=== PATIENT | female | born 1960 | race Two or more races ===

== ENCOUNTER → 2016-09-30 | Outpatient (CLI) | payer OTHER ==
[2014-10-01 09:23] VITALS: BP 125/65
[~2016-09-30] MED LIST: DOXY50SY PO; ESCI5TAB24 PO; EZET10TA3 PO; LANS15CA66 PO; PANT20TA2 PO; TRAZ50TA15 PO
--- NOTE | 2016-09-30 09:43 | RAD ---
Indication:Right upper quadrant abdominal pain. Grayscale images of the abdomen were obtained. Comparison none Liver:No focal mass is seen in the visualized liver. Gallbladder:Normal. The common bile but diameter of approximately 4 mm is normal Spleen:Normal Pancreas:As visualized normal. The distal body and tail of the pancreas were partially obscured. Kidneys:Normal Abdominal aorta and IVC:Normal Ancillary findings:None Impression:Normal exam
--- NOTE | 2016-09-30 12:57 | RAD ---
Transabdominal and transvaginal sonography of the pelvis Clinical indications: Pelvic pain. Transabdominal sonography: The uterus is anteverted in position. The longitudinal and AP and transverse dimensions of the uterus are 5.8 cm and 1.8 cm and 4.5 cm respectively. Endometrial canal is poorly visualized. Therefore, transvaginal sonography will be performed. No free fluid is seen within the cul-de-sac. Neither ovary is visualized. No adnexal masses are seen. Transvaginal sonography: The endometrial canal measures 2.9 mm in thickness and appears normal. No uterine mass or fibroid is seen. No free fluid is seen within the cul-de-sac. The left ovary measures 2.8 cm and 1.1 cm and 2.1 cm in size and is normal. Color Doppler flow is seen within the left ovary. The right ovary measures 2.2 cm and 1.4 cm and 1.8 cm in size and is normal. Color Doppler flow is seen within the right ovary. IMPRESSION: Unremarkable pelvic sonogram.
== END | disposition home or self-care (01) ==
LOC: US 07:58
PROVIDERS: ATTEND Family Medicine
DX: R10.11 Right upper quadrant pain (principal); R10.13 Epigastric pain; R10.819 Abdominal tenderness, unspecified site; R10.2 Pelvic and perineal pain
CPT/HCPCS: 76700; 76856

== ENCOUNTER → 2017-01-11 | Outpatient (CLI) | payer OTHER ==
[2014-10-01 09:23] VITALS: BP 125/65
--- NOTE | 2017-01-11 13:00 | KCIC ---
Indication: Neck pain. Time of exam 12:20 PM Comparison is made with prior cervical spine radiographs from 02/10/2015. Straightening of the normal cervical lordotic curvature is similar to prior exam. Postoperative changes with osseous fusion of the C5 and C6 vertebral bodies appear similar to prior. C6-7 degenerative disc disease with disc space narrowing and marginal spurring appears stable. There is also degenerative disc disease C4-5 level. The prevertebral tissues are normal. The odontoid appears intact. No fractures are seen. IMPRESSION: Stable cervical spine radiographs when compared with exam from 02/10/2015. Electronically signed by: Min Resendez MD (01/11/2017 12:56 PM)
--- NOTE | 2017-01-11 13:02 | KCIC ---
Indication: Upper back pain. Time of exam 12:24 PM Comparison is made with prior thoracic spine radiographs from 02/27/2014. Curvature and alignment is normal. Vertebral body heights are well-maintained. No acute compression fracture is seen. There is generalized degenerative disc disease with variable disc space narrowing and marginal spurring. The pedicles and paraspinous line are intact. IMPRESSION: Generalized thoracic spondylosis. No acute bony abnormality is detected. Electronically signed by: Min Resendez MD (01/11/2017 12:58 PM)
== END | disposition home or self-care (01) ==
LOC: KCIC 12:08
PROVIDERS: ATTEND Family Medicine
DX: M54.2 Cervicalgia (principal); M54.6 Pain in thoracic spine; M54.9 Dorsalgia, unspecified; M47.894 Other spondylosis, thoracic region
CPT/HCPCS: 72050; 72072

== ENCOUNTER → 2017-02-02 | Outpatient (CLI) | payer OTHER ==
[2014-10-01 09:23] VITALS: BP 125/65
[~2017-02-02] MED LIST changes: -ESCI5TAB24 PO; +ESCITALOPRAM OXA5 MG PO; +EZET10TA18 PO; -EZET10TA3 PO; +GADOBUTROL 7.5 MMOL/7.5 ML VIAL IV ONE; -LANS15CA66 PO; +LANS15CA78 PO
--- NOTE | 2017-02-02 10:51 | RAD ---
MRI Brain with and without contrast History:INCREASED HEADACHES, DIZZINESS, BLURRED VISON X 2 MONTHS Technique: Axial diffusion, axial gradient echo T2, axial T2, axial FLAIR, sagittal and axial T1, and postcontrast axial, sagittal, and coronal T1-weighted images were acquired of the brain. Contrast: 6 cc Gadavist Comparison: None Findings: There is no evidence of recent infarct or cytotoxic edema. The ventricles, sulci, and cisterns are within normal limits in size and configuration. There is no significant midline shift, intraaxial mass effect, or focal abnormal extra-axial fluid collection. There is no significant hemosiderin deposition of the brain parenchyma. There are a few scattered small foci of nonenhancing T2 hyperintense abnormality such as of the bifrontal deep white matter and the left frontal deep white matter. There is no nodular parenchymal or leptomeningeal enhancement. There is preservation of the major intracranial flow-voids at the skull base. The cerebellar tonsils are normal in location. There is no significant abnormality of the pineal gland or pituitary gland. There is patchy [id number] bilateral ethmoid air cell and very mild right maxillary sinus mucosal thickening. The mastoid air cells are aerated. There is preserved marrow signal of the clivus. Impression: 1. There are a few scattered small foci of nonenhancing T2 and FLAIR hyperintense signal abnormality of the supratentorial white matter. Findings are nonspecific, degree of which could be seen in asymptomatic individuals. White matter changes can be seen in patients with migraine headaches. Pattern is not suggestive of an inflammatory demyelinating disease. Sequela of chronic microvascular ischemic disease is possible. Electronically signed by: Bryan Hou MD (02/02/2017 10:48 AM)
== END | disposition home or self-care (01) ==
LOC: MRI 15:10
PROVIDERS: ATTEND Family Medicine
DX: R42 Dizziness and giddiness (principal); R51 Headache; H53.9 Unspecified visual disturbance; R29.818 Other symptoms and signs involving the nervous system
CPT/HCPCS: 70553; A9585

== ENCOUNTER → 2017-03-17 | Outpatient (CLI) | payer OTHER ==
[2014-10-01 09:23] VITALS: BP 125/65
[~2017-03-17] MED LIST changes: -GADOBUTROL 7.5 MMOL/7.5 ML VIAL IV ONE
--- NOTE | 2017-03-17 14:17 | KCIC ---
Thyroid ultrasound 03/17/2017 CLINICAL HISTORY: Thyroid nodules. TECHNIQUE: A real-time ultrasound examination of the thyroid gland was performed. Multiple images were obtained. FINDINGS: Comparison study is dated 03/31/2016. The thyroid gland is mildly enlarged. The right lobe of the thyroid gland measures 4.8 x 1.7 x 1.2 cm in longitudinal, transverse, and AP dimensions. The left lobe of thyroid gland measures 3.9 x 1.7 x 0.9 cm in size. Within the superior aspect of the right lobe of the thyroid gland a complex nodule is seen which measures 4 mm in greatest diameter. This has not significantly changed since the previous study. Within the inferior aspect of the right lobe of the thyroid gland a slightly heterogeneous predominantly hypoechoic nodule is seen which measures 1.7 cm in greatest diameter. This has not significantly changed in size since the previous examination. Within the mid aspect of the left lobe of thyroid gland a hypoechoic nodule is seen which measures 3 mm in greatest diameter. This is unchanged. A 4 mm hypoechoic nodule is seen which is unchanged. No new nodule is definitely visualized. IMPRESSION: Findings consistent with a multinodular goiter, unchanged. Electronically signed by: Larry Cosme MD (03/17/2017 2:14 PM) [email or web address]
== END | disposition home or self-care (01) ==
LOC: KCIC US 11:05
PROVIDERS: ATTEND Surgery
DX: E04.2 Nontoxic multinodular goiter (principal)
CPT/HCPCS: 76536

== ENCOUNTER → 2017-10-19 | Outpatient (CLI) | payer OTHER | LOC: NM 08:54 | DX: R55 Syncope and collapse (principal); R42 Dizziness and giddiness; R06.09 Other forms of dyspnea; R07.9 Chest pain, unspecified; R11.0 Nausea; E78.00 Pure hypercholesterolemia, unspecified | CPT/HCPCS: 78452; 93017; 96374; 96376; A9500 ==

== ENCOUNTER → 2017-10-26 | Day surgery (SDC) | payer OTHER ==
[~2017-10-26] MED LIST changes: +BENZOCAINE ONE 20% MUCOSAL SPRAY.; -DOXY50SY PO; -ESCITALOPRAM OXA5 MG PO; -EZET10TA18 PO; -LANS15CA78 PO; +LIDOCAINE 1% PF 2 ML VIAL. ID; +MEPERIDINE PF 25 MG/ML VIAL.; +MIDAZOLAM HCL/PF 5 MG/5 ML VIAL.; +MORPHINE SULFATE 4 MG/ML DISP.SYRIN. IV; +ONDANSETRON PF 4 MG/2 ML VIAL. IV; -PANT20TA2 PO; +PROCHLORPERAZINE 10 MG/2 ML VIAL. IV; -TRAZ50TA15 PO; +fentaNYL PF VIAL 100 MCG/2 ML VIAL IV
[2017-10-26] MEDS: IV RINGERS,LACTATED 1000ML 1,000 ML IV ×2 (09:14)
[2017-10-26] MEDS: BENZOCAINE ONE 20% MUCOSAL SPRAY. MM ×2 (09:51)
== END | disposition home or self-care (01) ==
LOC: ENDOS 08:33
DX: D12.3 Benign neoplasm of transverse colon (principal); K29.50 Unspecified chronic gastritis without bleeding; K21.0 Gastro-esophageal reflux disease with esophagitis; K64.0 First degree hemorrhoids; K31.89 Other diseases of stomach and duodenum; K20.9 Esophagitis, unspecified; G45.9 Transient cerebral ischemic attack, unspecified; E78.00 Pure hypercholesterolemia, unspecified; N39.0 Urinary tract infection, site not specified; C73 Malignant neoplasm of thyroid gland; F41.9 Anxiety disorder, unspecified; F32.9 Major depressive disorder, single episode, unspecified; J45.909 Unspecified asthma, uncomplicated; N80.9 Endometriosis, unspecified; M19.90 Unspecified osteoarthritis, unspecified site; I10 Essential (primary) hypertension; Z88.8 Allergy status to other drugs, medicaments and biological substances; Z88.6 Allergy status to analgesic agent; Z91.040 Latex allergy status; Z88.0 Allergy status to penicillin; Z88.1 Allergy status to other antibiotic agents; Z88.4 Allergy status to anesthetic agent; Z90.49 Acquired absence of other specified parts of digestive tract
CPT/HCPCS: 43239; 88305; 88342; G0500; J2175; J2250

== ENCOUNTER → 2017-11-02 | Outpatient (CLI) | payer OTHER | END | disposition home or self-care (01) | LOC: KCIC US 08:52 | DX: K76.89 Other specified diseases of liver (principal) | CPT/HCPCS: 76700 ==

== ENCOUNTER → 2017-11-10 | Outpatient (CLI) | payer OTHER ==
[2017-11-10] MEDS: IOHEXOL 240 MG/ML 50ML VIAL. PO (09:05)
[2017-11-10] MEDS: IOHEXOL 300 MG/ML 100ML VIAL. IV (09:20)
== END | disposition home or self-care (01) ==
LOC: KCIC CT 08:32
DX: I70.0 Atherosclerosis of aorta (principal); R10.11 Right upper quadrant pain
CPT/HCPCS: 74160; Q9966; Q9967

== ENCOUNTER → 2017-11-16 | Outpatient (CLI) | payer OTHER ==
[2017-11-16] MEDS: IOHEXOL 240 MG/ML 50ML VIAL. PO (12:00)
[2017-11-16] MEDS: IOHEXOL 300 MG/ML 100ML VIAL. IV (12:45)
== END | disposition home or self-care (01) ==
LOC: KCIC CT 11:34
DX: R10.31 Right lower quadrant pain (principal); I10 Essential (primary) hypertension
CPT/HCPCS: 72193; Q9966; Q9967

== ENCOUNTER → 2018-03-07 | Outpatient (CLI) | payer OTHER | END | disposition home or self-care (01) | LOC: KCIC 15:42 | DX: R47.02 Dysphasia (principal) | CPT/HCPCS: 71046 ==

== ENCOUNTER → 2018-03-28 | Outpatient (CLI) | payer OTHER | END | disposition home or self-care (01) | LOC: KCIC US 13:16 | DX: E04.2 Nontoxic multinodular goiter (principal); I10 Essential (primary) hypertension | CPT/HCPCS: 76536 ==

== ENCOUNTER → 2018-05-23 | Outpatient (CLI) | payer OTHER ==
[2017-10-26 10:53] VITALS: BP 121/70
[~2018-05-23] MED LIST changes: -BENZOCAINE ONE 20% MUCOSAL SPRAY.; +DOXY50SY PO; +DULO20CA PO; +ESCITALOPRAM OXA5 MG PO; +EZET10TA18 PO; +LANS15CA78 PO; -LIDOCAINE 1% PF 2 ML VIAL. ID; -MEPERIDINE PF 25 MG/ML VIAL.; -MIDAZOLAM HCL/PF 5 MG/5 ML VIAL.; -MORPHINE SULFATE 4 MG/ML DISP.SYRIN. IV; -ONDANSETRON PF 4 MG/2 ML VIAL. IV; +PANT20TA2 PO; -PROCHLORPERAZINE 10 MG/2 ML VIAL. IV; +TRAZ-85 PO; +VALIUM10 MG PO; -fentaNYL PF VIAL 100 MCG/2 ML VIAL IV
--- NOTE | 2018-05-23 13:34 | KCIC ---
MRI Cervical Spine Without Contrast History: Cervicalgia, neck pain, left upper extremity numbness, bilateral foot pain, previous surgery Technique: Multiplanar, multi sequential noncontrast MR imaging was performed of the cervical spine. Comparison: March 02, 2016 Findings: There is again interbody fusion at C5-6. Cervical cord caliber is within normal limits without focal signal abnormality. There is no new abnormality of the cervical medullary junction. Cervical vertebral body stature is preserved. There is negligible posterior subluxation C4 relative to C5 and negligible anterior spondylolisthesis at C7-T1 as seen previously. There is again moderate degenerative disc disease at C4-5 and to lesser degree at C6-7. There is no significant marrow edema. There is again probable cystic focus at the base of C2 up to 0.6 cm. C2-C3: Spinal canal and neural foramina are adequate. C3-C4: Neural foramina and spinal canal are adequate. C4-C5: There is again disc osteophyte complex and bulge. Central canal is minimally narrowed to about 8 to 9 mm also with mild left greater than right lateral recess stenosis. There is uncovertebral degenerative change greater on the left. There is mild facet degenerative change. There is again severe narrowing of the left neural foramen, mild to moderate narrowing on the right. C5-C6: There is again osteophytic bridging greater in the left lateral recess. Central canal is adequate about 11 mm, mild left lateral recess stenosis. Right neural foramen is adequate. Osteophytes contribute to mild to moderate narrowing of the left neural foramen. C6-C7: There is again minimal disc osteophyte complex and bulge. Central canal is borderline about 10 mm. There is uncovertebral degenerative change bilaterally. There is mild to moderate narrowing of the left neural foramen, minimal narrowing on the right. C7-T1: Spinal canal is adequate. There is mild uncovertebral degenerative change. Neural foramina are not significantly narrowed. Impression: 1. There is again mild spinal stenosis C4-5, mild left lateral recess stenosis C5-C6. 2. There is again interbody fusion C5-C6. There is moderate degenerative disc disease C4-5 and to lesser degree at C6-7, multilevel mild spondylosis. 3. There is again severe narrowing of the left C4-5 neural foramen, lesser degree of narrowing on the right at C4-5 and on the left at C5-C6 and C6-7. Uncovertebral degenerative change contributes to neural foramina compromise. Electronically signed by: Bryan Hou MD (05/23/2018 1:30 PM) [email or web address]
== END | disposition home or self-care (01) ==
LOC: KCIC MRI 10:18
PROVIDERS: ATTEND Neurological Surgery
DX: M50.323 Other cervical disc degeneration at C6-C7 level (principal); M48.02 Spinal stenosis, cervical region; M47.892 Other spondylosis, cervical region; M25.78 Osteophyte, vertebrae
CPT/HCPCS: 72141

== ENCOUNTER → 2018-09-18 | Outpatient (CLI) | payer OTHER ==
[2017-10-26 10:53] VITALS: BP 121/70
[~2018-09-18] MED LIST changes: +TRAZ-118 PO; -TRAZ-85 PO
--- NOTE | 2018-09-18 15:26 | KCIC ---
EXAM: PA and Lateral Views of the Chest DATE: 09/18/2018 12:00 AM INDICATION: Chest pain, productive cough for 3 weeks with fevers COMPARISON: No Prior FINDINGS: The heart is not enlarged. Mediastinal and hilar contours are normal. No focal parenchymal airspace opacity. No pleural effusion or pneumothorax. IMPRESSION: 1. No radiographic evidence for acute cardiopulmonary process. Specifically no lobar consolidation is identified. Electronically signed by: Ernie Nelson MD (09/18/2018 3:22 PM) [email or web address]
== END | disposition home or self-care (01) ==
LOC: KCIC 14:22
PROVIDERS: ATTEND Family Medicine
DX: J18.9 Pneumonia, unspecified organism (principal)
CPT/HCPCS: 71046

== ENCOUNTER → 2018-12-19 | Outpatient (CLI) | payer OTHER ==
[2017-10-26 10:53] VITALS: BP 121/70
--- NOTE | 2018-12-19 13:07 | KCIC ---
EXAM: Cervical spine, 3 views. HISTORY: Pain. COMPARISON: MRI dated 05/23/2018. FINDINGS: 3 views of the cervical spine are obtained. There is noninstrumented fusion at C5-C6 with bony bridging across the disc space. There is straightening of cervical lordosis. There is degenerative endplate remodeling and spurring primarily at C6-C7, and to a lesser extent, C4-C5 and C7-T1. There is multilevel facet arthropathy. IMPRESSION: 1. Multilevel degenerative change within the cervical spine, primarily at C6-C7. 2. Noninstrumented fusion with bony bridging at C5-C6. Electronically signed by: Yuli Lam MD (12/19/2018 1:04 PM) [email or web address]
== END | disposition home or self-care (01) ==
LOC: KCIC 12:25
PROVIDERS: ATTEND Neurological Surgery
DX: M47.812 Spondylosis without myelopathy or radiculopathy, cervical region (principal); M12.88 Other specific arthropathies, not elsewhere classified, other specified site; Z98.1 Arthrodesis status
CPT/HCPCS: 72040

== ENCOUNTER → 2019-01-25 | Outpatient (CLI) | payer OTHER ==
[2017-10-26 10:53] VITALS: BP 121/70
--- NOTE | 2019-01-25 16:46 | KCIC ---
MRI of the cervical spine without contrast 01/25/2019 CLINICAL HISTORY: Neck pain with bilateral arm numbness. TECHNIQUE: Unenhanced T1-weighted, T2-weighted and inversion recovery sagittal and gradient echo and T2-weighted axial images of the cervical spine were obtained. FINDINGS: Comparison study is dated 05/23/2018. Very mild lateral curvature of the cervical spine is seen convex to the right. There is straightening of the normal cervical lordosis. Bony fusion across the C5-6 disc space is seen. Degenerative signal changes are seen involving all of the disks of the cervical spine. Degenerative signal changes are seen within the marrow surrounding these discs. Loss of height of the C4-5 and C6-7 discs is noted. No area of abnormal signal intensity is seen involving the cervical spinal cord. At the C2-3 and C3-4 disc spaces there are minimal generalized disc bulges. Degenerative changes are seen involving the uncovertebral and facet joints bilaterally. These findings do not result in significant central spinal canal or neural foraminal stenosis. At the C4-5 disc space there is a mild generalized disc bulge. Degenerative changes are seen involving the uncovertebral and facet joints, left greater than right. These findings when combined result in mild central spinal canal stenosis without evidence of cord impingement. Mild to moderate left neural foraminal stenosis is seen. The right neural foramen is patent. At the C5-6 level degenerative changes are seen involving the uncovertebral and facet joints, left greater than right. These findings do not result in significant central spinal canal or neural foraminal stenosis. At the C6-7 disc space there is a mild generalized disc bulge. Degenerative changes are seen involving the uncovertebral and facet joints, right greater than left. These findings do not result in significant central spinal canal stenosis. Mild right neural foraminal stenosis is seen. The left neural foramen is patent. At the C7-T1 disc space there is a minimal generalized disc bulge. Degenerative changes are seen involving the facet joints bilaterally. These findings do not result in significant central spinal canal or neural foraminal stenosis. Since the previous examination there has been no significant interval change. IMPRESSION: Degenerative changes are seen throughout the cervical spine. These findings result in mild central spinal canal stenosis without evidence of cord impingement at C4-5. Mild to moderate left neural foraminal stenosis is seen at C4-5. Mild right neural foraminal stenosis is seen at C6-7. Electronically signed by: Larry Cosme MD (01/25/2019 4:44 PM) [email or web address]
== END | disposition home or self-care (01) ==
LOC: KCIC MRI 12:06
PROVIDERS: ATTEND Neurological Surgery
DX: M48.02 Spinal stenosis, cervical region (principal); M47.812 Spondylosis without myelopathy or radiculopathy, cervical region; M40.50 Lordosis, unspecified, site unspecified; Z88.0 Allergy status to penicillin; Z88.1 Allergy status to other antibiotic agents; Z88.8 Allergy status to other drugs, medicaments and biological substances
CPT/HCPCS: 72141

== ENCOUNTER → 2019-02-06 | Outpatient (CLI) | payer OTHER ==
[2017-10-26 10:53] VITALS: BP 121/70
--- NOTE | 2019-02-06 14:06 | KCIC ---
CT HEAD INDICATION: Dizziness, recent fainting episodes COMPARISON: None Available. Exposure: One or more of the following individualized dose reduction techniques were utilized for this examination: 1. Automated exposure control 2. Adjustment of the mA and/or kV according to patient size 3. Use of iterative reconstruction technique TECHNIQUE: 5 mm contiguous axial images were obtained from the skull base to the vertex in both bone and soft tissue algorithm. FINDINGS: No abnormal attenuation within the brain parenchyma. No evidence of acute intracranial hemorrhage. No extra-axial fluid collections. No mass effect or midline shift. Ventricular size is appropriate. Basal cisterns are patent. No fractures identified.Brandt-white differentiation is preserved.Globes and orbits are within normal limits. Paranasal sinuses and mastoid air cells are clear. IMPRESSION: No acute intracranial findings. Electronically signed by: Burt Quiroz MD (02/06/2019 2:03 PM) [place] [id number]
== END | disposition home or self-care (01) ==
LOC: KCIC CT 13:25
PROVIDERS: ATTEND Family Medicine
DX: R42 Dizziness and giddiness (principal); R55 Syncope and collapse; I10 Essential (primary) hypertension
CPT/HCPCS: 70450

== ENCOUNTER → 2019-03-21 | Outpatient (CLI) | payer OTHER ==
[2017-10-26 10:53] VITALS: BP 121/70
--- NOTE | 2019-03-21 14:30 | KCIC ---
THYROID ULTRASOUND History: Thyroid nodule follow-up Comparison: March 28, 2018 Findings: Multiple sonographic images of the thyroid gland are submitted. Right lobe measured 4.9 x 1.4 x 2 1.2 cm. Left lobe measured 3.7 x 1 x 1.6 cm. Isthmus measured 0.2 cm in thickness. There are again multiple nodules bilaterally. Dominant, solid, complex nodule of the inferior right gland measures about 1.9 x 0.9 x 1.1 cm (previously 1.8 x 0.9 x 1 cm). Smaller solid nodule of the superior right gland measures up to 0.8 cm x 0.4 x 0.6 cm, not significantly changed allowing for slight differences in caliber placement. Both foci are associated with internal vascularity on color Doppler imaging. There were 3 measured hypoechoic although likely solid lesions of the left gland, largest up to 0.4 cm, not associated with internal vascularity on color Doppler imaging. IMPRESSION: 1. There are again bilateral thyroid nodules, not convincingly changed allowing for slight differences in caliber placement, largest inferiorly on the right. Electronically signed by: Bryan Hou MD (03/21/2019 2:27 PM) [email or web address]
== END | disposition home or self-care (01) ==
LOC: KCIC US 12:27
PROVIDERS: ATTEND Surgery
DX: E04.2 Nontoxic multinodular goiter (principal)
CPT/HCPCS: 76536

== ENCOUNTER → 2020-02-20 | Outpatient (CLI) | payer MEDICAID ==
[2017-10-26 10:53] VITALS: BP 121/70
[~2020-02-20] MED LIST changes: -EZET10TA18 PO; +EZET10TA20 PO
--- NOTE | 2020-02-20 12:51 | KCIC ---
MRI of the cervical spine without contrast 02/20/2020 CLINICAL HISTORY: Neck pain which radiates down both arms. History of cervical spinal canal stenosis. TECHNIQUE: Unenhanced T1-weighted, T2-weighted and inversion recovery sagittal and gradient echo and T2-weighted axial images of the cervical spine were obtained. FINDINGS: Comparison study is dated 01/25/2019. There is straightening of the normal cervical lordosis. Bony fusion across the C5-6 disc space is again seen. Degenerative signal changes are seen involving all of the remaining discs of the cervical spine. Degenerative signal changes are seen within the marrow surrounding these discs. Loss of height of the C4-5 and C6-7 discs is noted. No area of abnormal signal intensity is seen involving the cervical spinal cord. At the C2-3 and C3-4 disc spaces there are minimal to mild generalized disc bulges. Degenerative changes are seen involving the uncovertebral and facet joints bilaterally. These findings do not result in significant central spinal canal or neural foraminal stenosis. At the C4-5 disc space there is a mild generalized disc bulge. Degenerative changes are seen involving the uncovertebral and facet joints, left greater than right. These findings efface the anterior and posterior CSF resulting in mild central spinal canal stenosis without evidence of cord impingement. Mild to moderate left neural foraminal stenosis is seen. The right neural foramen is patent. At the C5-6 level degenerative changes are seen involving the uncovertebral and facet joints bilaterally. These findings do not result in significant central spinal canal or neural foraminal stenosis. At the C6-7 disc space there is a mild generalized disc bulge. Degenerative changes are seen involving the uncovertebral and facet joints, right greater than left. These findings do not result in significant central spinal canal stenosis. Mild right neural foraminal stenosis is seen. The left neural foramen is patent. At the C7-T1 disc space there is a mild generalized disc bulge. Degenerative changes are seen involving the facet joints bilaterally. These findings do not result in significant central spinal canal or neural foraminal stenosis. The mild central spinal canal stenosis at C4-5 appears to have increased slightly since the previous examination. IMPRESSION: Degenerative changes are seen throughout the cervical spine. These findings result in mild central spinal canal stenosis without evidence of cord impingement at C4-5. Mild to moderate left neural foraminal stenosis is seen at C4-5. Mild right neural foraminal stenosis is seen at C6-7. Electronically signed by: Larry Cosme MD (02/20/2020 12:48 PM) [id number]
--- NOTE | 2020-02-20 13:27 | KCIC ---
MRI of the lumbar spine without contrast 02/20/2020 CLINICAL HISTORY: Low back pain with left foot pain. TECHNIQUE: Unenhanced T1-weighted and T2-weighted sagittal and axial and inversion recovery sagittal images of the lumbar spine were obtained. FINDINGS: Comparison study is dated 03/03/2015. Very mild S-shaped curvature of the thoracolumbar spine is seen. Degenerative signal changes are seen involving all of the disks of the lumbar spine. Degenerative signal changes are seen within the marrow surrounding these discs. Loss of height of the L2-3, L3-4 and L4-5 discs is noted. The conus medullaris is normal morphology, position, and signal characteristics. At the L1-2 disc space there is a mild generalized disc bulge. Degenerative changes are seen involving the facet joints bilaterally. There is mild ligamentum flavum hypertrophy bilaterally. These findings do not result in significant central spinal canal or neural foraminal stenosis. At the L2-3 disc space there is a mild to moderate generalized disc bulge. This is eccentric to the left. Superimposed on this disc bulge is a central/left paracentral focal disc protrusion. This measures 4 mm in AP diameter. Degenerative changes are seen involving the facet joints bilaterally. There is mild ligamentum flavum hypertrophy bilaterally. Small facet joint effusions are seen bilaterally. These findings when combined result in mild left-sided central spinal canal stenosis. Mild left-sided neural foraminal stenosis is seen. The right neural foramen is patent. At the L3-4 disc space there is a mild generalized disc bulge. Degenerative changes are seen involving the facet joints bilaterally. There is mild ligamentum flavum hypertrophy bilaterally. Small facet joint effusions are seen bilaterally. These findings when combined do not result in significant central spinal canal or neural foraminal stenosis. At the L4-5 disc space there is a moderate generalized disc bulge. Degenerative changes are seen involving the facet joints bilaterally. There is mild ligamentum flavum hypertrophy bilaterally. There is prominence of the posterior epidural fat. These findings when combined result in mild central spinal canal stenosis. Mild right neural foraminal stenosis is seen. The left neural foramen is patent. At the L5-S1 disc space there is a mild generalized disc bulge. Degenerative changes are seen involving the facet joints bilaterally. There is mild ligamentum flavum hypertrophy bilaterally. These findings do not result in significant central spinal canal or neural foraminal stenosis. The degenerative changes have progressed slightly since the previous study. IMPRESSION: The changes of degenerative disc disease are seen throughout the lumbar spine. These findings result in mild left-sided central spinal canal stenosis at L2-3. Mild left neural foraminal stenosis is seen at L2-3. Mild right neural foraminal stenosis is seen at L4-5. Electronically signed by: Larry Cosme MD (02/20/2020 1:24 PM) [id number]
== END ==
LOC: KCIC MRI 10:12
PROVIDERS: ATTEND Neurological Surgery
DX: M47.812 Spondylosis without myelopathy or radiculopathy, cervical region (principal); M51.36 Other intervertebral disc degeneration, lumbar region; M48.02 Spinal stenosis, cervical region; M48.061 Spinal stenosis, lumbar region without neurogenic claudication
CPT/HCPCS: 72141; 72148

== ENCOUNTER → 2020-05-06 | Outpatient (CLI) | payer MEDICAID ==
[2017-10-26 10:53] VITALS: BP 121/70
[~2020-05-06] MED LIST changes: +IOHEXOL 300 MG/ML 100ML VIAL. IV ONE
--- NOTE | 2020-05-06 17:08 | KCIC ---
EXAM: Maxillofacial bone CT with contrast. HISTORY: Jaw pain 6 months status post tooth extraction. TECHNIQUE: Computed tomographic images of the axilla facial bones were obtained following the administration of intravenous contrast. COMPARISON: Head CT dated 02/06/2019. FINDINGS: There are multiple missing teeth and dental restorations. There is periapical lucency surrounding a portion of a left maxillary first molar implant. There is no fracture. The paranasal sinuses are clear. The ostiomeatal units are patent. There is a small right jennifer bullosa and mild rightward nasal septal deviation. The temporal minimal joints are intact. The parotid and submandibular glands are unremarkable. The mastoid air cells are clear. The visualized portions of the brain and calvarium are unremarkable. No drainable fluid collection is seen. No lymphadenopathy is seen. IMPRESSION: 1. Periapical lucency surrounding the roots of a left maxillary first molar implant/samaritan. There are multiple missing and partially missing teeth and dental restorations. Correlate with dental exam findings. 2. No acute finding. Electronically signed by: Yuli Lam MD (05/06/2020 5:05 PM) [id number]
== END | disposition home or self-care (01) ==
LOC: KCIC CT 13:57
PROVIDERS: ATTEND Family Medicine
DX: R68.84 Jaw pain (principal); R93.89 Abnormal findings on diagnostic imaging of other specified body structures; Z88.0 Allergy status to penicillin; Z88.1 Allergy status to other antibiotic agents; Z88.8 Allergy status to other drugs, medicaments and biological substances
CPT/HCPCS: 70487; Q9967

== ENCOUNTER → 2020-05-27 | Outpatient (CLI) | payer MEDICAID ==
[2017-10-26 10:53] VITALS: BP 121/70
[~2020-05-27] MED LIST changes: +GADOTERATE 7.5 MMOL/15ML VIAL. IVP ONE; -IOHEXOL 300 MG/ML 100ML VIAL. IV ONE
--- NOTE | 2020-05-27 16:48 | KCIC ---
NECK ORBIT FACE W/WO CONTRAST History:Reason: POSSIBLE OSTEOMYLEITIS OF RIGHT MANDIBLE / Spl. Instructions: / History: Jaw pain since January, tooth extraction Sep 2019. 12cc Clariscan Technique: Multiplanar, multi sequential without and with intravenous contrast MR imaging was performed of the maxillofacial. Comparison: CT May 06, 2020. Findings: In the regions of the patient's prior right mandibular molar tooth extractions is increased edema and ill-defined patchy enhancement. The mandibular cortex in this region appears intact. No evidence of cortical destruction. No adjacent soft tissue mass or abscess. Imaged orbits and intracranial contents are unremarkable. Imaged paranasal sinuses and mastoid air cells are clear. Impression: 1. Ill-defined edema and enhancement within the region of the right mandibular molar tooth extraction sites. Given persistent symptoms finding may relate to chronic inflammatory process although early osteomyelitis is difficult to exclude. No evidence of cortical destruction. Recommend follow-up after treatment. Electronically signed by: Yon Sheffield DO (05/27/2020 4:45 PM) [id number]
== END ==
LOC: KCIC MRI 13:56
PROVIDERS: ATTEND Family Medicine
DX: M27.2 Inflammatory conditions of jaws (principal); R93.89 Abnormal findings on diagnostic imaging of other specified body structures
CPT/HCPCS: 70543; A9575